=== PATIENT | male | born 1975 | race Caucasian/White ===

== ENCOUNTER 2020-06-05 17:27 | Inpatient (IN) | payer BC, SELFPAY ==
[2020-06-05] VITALS (12 sets, daily range): BP systolic 125–150; BP diastolic 77–95; PULSE 77–85; RESP 10–20; TEMP 36.9–37.6; O2SAT 92–98; BMI 33.9
--- NOTE | 2020-06-05 19:38 | P.HP_ITS ---
History of Present Illness History of Present Illness Date Patient Seen: 06/05/20 Time Patient Seen: 19:38 Chief complaint: ABD PAIN Narrative: 45M healthy healthy male transferred from an outside institution for acute appendicitis. He developed generalized abdominal pain yesterday today became focused in the right lower quadrant he was evaluated in the emergency room at [place] CT demonstrates acute appendicitis without abscess or for free air. White blood cell count 12. He has received ceftriaxone and Flagyl. He was transferred here he complains of abdominal pain no nausea vomiting or fever. Past medical history significant for a prior exploratory laparotomy for traumatic bowel perforation 20 years ago. He is a nonsmoker and not on anticoagulation. Patient History Medical History Traumatic perforation of large intestine (Acute) Surgical History H/O exploratory laparotomy (Acute) Review of Systems Review of Systems Narrative: A 10 point review of systems is negative except as noted in the HPI Exam Vital Signs (past 8 hours): - 06/05/20 19:20 Temperature 99.3 F Pulse Rate 83 Respiratory Rate 20 Blood Pressure 125/79 Pulse Oximetry 95 Oxygen Flow Rate 0 Narrative Exam Narrative: General-no acute distress, well nourished HEENT-moist mucous membranes, no scleral icterus Neck-supple, no lymphadenopathy Chest- non labored respirations, clear to auscultation bilaterally Cardiac-regular rate no peripheral edema Abdomen-midline laparotomy scar. Tender right lower quadrant no guarding Extremities-warm, well perfused Neurological-alert and oriented, no focal deficits Assessment & Plan Assessment and plan (1) Acute appendicitis: Status: Acute Assessment & Plan narrative: 45-year-old male with acute appendicitis transferred from an outside facility. I reviewed his CT which demonstrates acute appendicitis without abscess. He has had 2 days of symptoms, white blood cell count is 12, history of prior laparotomy. I recommended that we proceed to the operating room for laparoscopic appendectomy. We discussed the technical nature of the procedure and the operative risks including bleeding infection conversion open damage to surrounding structures. I told him he is at slightly higher risk for a difficult case given his prior laparotomy and potential intra-abdominal adhesions. His questions have been answered he is in agreement with this plan will proceed to the operating room. His COVID testing at the outside institution was negative. COVID-19 COVID-19 status: Negative
[2020-06-05] MEDS: LACTATED RINGERS 1,000 ML 42 ML IV ×2 (20:00→21:58)
--- NOTE | 2020-06-05 20:37 | SUR.OPER ---
Supine on padded OR bed, head on pillow, right arm secured on padded arm boards at <90 degrees abduction, left arm is tucked, legs uncrossed, safety belt at thigh, tape over blanket over lower legs.
[2020-06-05] MEDS: BUPIVACAINE 0.25% (PF) VIAL 30 ML INJ (20:43)
[2020-06-05] MEDS: PIPERACILLIN-TAZO 3.375 GM/50 ML FROZ.PIGGY IV (21:58)
--- NOTE | 2020-06-05 22:15 | PC.NURSE ---
Admit/Evening Shift Note- Patient arrived via helicopter from wed[facility] at 191. Patient alert and oriented and able to make needs known to staff. Patient pleasent, clam, and cooperative with care. Admit questions done, no medicaitons to review, physical assessment and skin check completed. Oriented patient to bed and bed controls, room, bathroom, lights, phone, menu, and call bhatia/tv remote. Patient left via bed to surgery 1944. Called patients Maricruz per patient request to update on what was happening.
[2020-06-05] MEDS: fentaNYL 100 MCG/2 ML INJ IV ×2 (22:49→23:13)
[2020-06-05] MEDS: ONDANSETRON 4 MG/2 ML INJ IV (22:51)
[2020-06-05] MEDS: HYDROMORPHONE 2 MG INJ IV ×3 (22:55→23:18)
--- NOTE | 2020-06-05 22:55 | P.OP_ITS ---
Operative Date/Time/Diagnoses Date of procedure: 06/05/20 Time of procedure: 22:55 Pre-op diagnosis: Acute appendicitis Post-op diagnosis: same Procedure & Clinicians Procedure: Laparoscopy Extensive lysis of adhesions Exploratory laparotomy Open appendectomy Same procedure as scheduled: No Indications: This is a 45-year-old man who had a previous exploratory laparotomy for a traumatic colonic perforation who presented with acute appendicitis. Surgeon: Tavon Armstrong Maintenance Supervisor Mechanical: Romeo Perkins Anesthesia Type: General Operative Notes Findings: Acute non perforated appendicitis. Extensive intra abdominal adhesions Specimen(s): other (Appendix) Estimated Blood Loss (mL): 100 Procedure in detail: Patient was brought to the operating room and placed supine on the table. Bilateral lower extremity compression devices were applied. General anesthesia was induced he was intubated with an endotracheal tube. Time-out was performed. He received 3.375 g of Zosyn prior to skin incision. He had a previous midline laparotomy so I made a cutdown incision on the left lower quadran. The subcutaneous tissues were divided the fascia elevated incised and then the 12 mm balloon trocar was then placed into the abdomen. Pneumoperitoneum was established. There was no evidence of injury upon entry. There were extensive dense adhesions throughout the abdomen especially to the midline and over the right lower quadrant. I placed additional 5 mm working ports in the left upper quadrant and high in the epigastrium. An extensive lysis of adhesions was performed using sharp dissection. The adhesions to the midline and overlying the right lower quadrant and these were taken down meticulously under direct visualization. Despite this I was still unable to identify the appendix. I then mobilized the right colon medially by taking it down from its attachments along the lateral wall following the white line of Toldt. There was a mass at the base of the cecum that I suspect was the appendix however it was signficantly adherent to thececum and the terminal ileum I was unable to clearly and safely deliniate the structures laparoscopically. Converted to an exploratory laparotomy and had my partner come and assist. I reopened his midline incision through the scar tissue. The subcutaneous tissues were divided the fascia was then elevated and sharply incised the abdomen was entered. The Bookwalter was placed. Further lysis of adhesions was performed in order to completely mobilize the cecum. Following the tenia down the right colon the appendix was ultimately identified. It was folded on itself and adhesed to the terminal ileum. The appendix was carefully dissected off of the terminal ileum the mesoappendix was divided between silk suture. Ultimately the base of the appendix was indeed visualized and it was healthy appearing the appendix was acutely inflamed but it was not perforated. The appendix was amputated at its base flush with the cecum the base was suture ligated with both PDS and Vicryl suture. I inspected the cecum carefully, there was no evidence of leak. The abdomen was copiously lavaged with sterile saline hemostasis was observed. The midline incision with a running #1 PDS from above and below. The subcutaneous tissues were then reapproximated using 3 0 Vicryl the skin was closed with nidhi as well as the laparoscopic port incisions. He emergerd from general anesthesia and was transfered to recovery in stable condition. Complications: none Post-operative Condition: stable Disposition: Acute Care
[2020-06-05] MEDS: METOCLOPRAMIDE 10 MG/2 ML INJ IV (23:27)
[2020-06-05] MEDS: OXYCODONE IR 5 MG TABLET PO (23:27)
[2020-06-05] MEDS: KETOROLAC 30 MG/ML VIAL IV (23:35)
[2020-06-06] VITALS (17 sets, daily range): BP systolic 111–139; BP diastolic 63–91; PULSE 61–80; RESP 16–20; TEMP 36.3–37; O2SAT 92–99
[2020-06-06] MEDS: ACETAMINOPHEN 325 MG TABLET 650 MG PO ×4 (00:19→16:39)
[2020-06-06] MEDS: SODIUM CHLORIDE 0.9% 1,000 ML 125 ML IV (00:22)
--- NOTE | 2020-06-06 01:20 | PC.NURSE ---
Pt arrived from surgery at 0000. Reports pain at 5/10 in ab, and reports tolerating pain at this time. Tylenol given as ordered. Midline and lap dressing sites CDI. Pt alert and oriented and holding a conversation. CMS intact. O2 sats at 98% on 4L o2. O2 sats decreased to 88% without O2. Pt has no complaints at this time. 0100 - Pt now resting in bed with eyes closed. [facility]
[2020-06-06] MEDS: OXYCODONE IR 5 MG TABLET 10 MG PO ×5 (03:11→22:20)
[2020-06-06] MEDS: PIPERACILLIN-TAZO 3.375 GM/50 ML FROZ.PIGGY IV ×3 (03:12→21:09)
[2020-06-06] MEDS: HYDROMORPHONE 2 MG INJ 1 MG IV (04:02)
[2020-06-06 05:06] LABS: Add Manual Diff / Slide Review NO; Basophils Absolute Auto 0 /uL (0-100); Basophils Percent Auto 0.2 % (0-2); Eosinophils Absolute Auto 0 /uL (0-450); Hemoglobin 14.9 g/dL (13.5-17.5); Lymphocytes Absolute Auto 500 /uL (1100-4500); Lymphocytes Percent Auto 3.8 % (25-40); Mean Corpuscular HGB Conc 34.5 % (30-36); Mean Corpuscular Hemoglobin 30.8 PG (26-34); Mean Corpuscular Volume 89.2 fL (80-100); Monocytes Absolute Auto 1000 /uL (0-900); Monocytes Percent Auto 7.2 % (3-14); Neutrophils Absolute Auto 12400 /uL (1500-7000); Neutrophils Percent Auto 88.8 % (50-75); Platelet Count 161 X10^3/uL (150-400); Red Blood Cell Count 4.82 X10^6/uL (4.5-5.9); Red Cell Distribution Width 12.8 % (11.6-14.8); White Blood Cell Count 13.9 X10^3/uL (4.5-11.0)
[2020-06-06 05:32] LABS: BUN Creatinine Ratio 18.9 (6-22); Blood Urea Nitrogen 18 mg/dL (9-20); Calcium 8.7 mg/dL (8.4-10.2); Carbon Dioxide 29 mmol/L (22-32); Chloride 103 mmol/L (98-107); Estimated Glomerular Filt Rate > 60.0 mL/min (>60); Glucose 155 mg/dL (70-100); HEMOLYSIS < 15 (0-50); Phosphorous 4.9 mg/dL (2.5-4.5); Potassium 4.4 mmol/L (3.4-5.1); Sodium 138 mmol/L (137-145)
--- NOTE | 2020-06-06 09:35 | P.PN_ITS ---
Subjective Subjective Date Patient Seen: 06/06/20 Time Patient Seen: 09:35 Interval history: No acute overnight events. He has tolerated clear liquid diet his passing flatus his pain is well controlled on oral medications. Urinating without issue. Exam Vital Signs (past 8 hours): - 06/06/20 02:04 06/06/20 03:10 06/06/20 04:00 Temperature Pulse Rate 66 65 Respiratory Rate 20 20 Blood Pressure 129/71 137/79 Pulse Oximetry 97 99 98 06/06/20 06:36 06/06/20 07:26 06/06/20 08:00 Temperature 97.4 F L Pulse Rate Respiratory Rate 18 Blood Pressure 139/80 Pulse Oximetry 96 94 94 Oxygen Delivery Method Room Air Oxygen Flow Rate 0 Narrative Exam Narrative: General adult male alert oriented no acute distress Abdomen appropriately tender to palpation midline incision clean dry intact with nidhi. Objective Labs Result Diagrams: 06/06/20 04:52 06/06/20 04:52 Labs: Laboratory Results - last 24 hr 06/06/20 06/06/20 04:52 04:52 WBC 13.9 H RBC 4.82 Hgb 14.9 Hct 43.0 MCV 89.2 MCH 30.8 MCHC 34.5 RDW 12.8 Plt Count 161 Neut % (Auto) 88.8 H Lymph % (Auto) 3.8 L [place] % (Auto) 7.2 Eos % (Auto) 0.0 L Baso % (Auto) 0.2 Neut # (Auto) 01769 H Lymph # (Auto) 500 L [place] # (Auto) 1000 H Eos # (Auto) 0 Baso # (Auto) 0 Sodium 138 Potassium 4.4 Chloride 103 Carbon Dioxide 29 BUN 18 Creatinine 0.95 Estimated GFR > 60.0 BUN/Creatinine Ratio 18.9 Glucose 155 H Calcium 8.7 Phosphorus 4.9 H Magnesium 2.0 Assessment & Plan Post-op Postoperative Procedures: Procedures Operation Date: 06/05/20 19:30 Actual Procedures Side Surgeon p Laparoscopic Appendectomy converted to open. Lysis of adhesions. Tavon Armstrong MD Postoperative status narrative: 45-year-old male postoperative day 1 after a laparoscopic converted to open appendectomy and lysis of adhesions for acute non perforated appendicitis. And had a prior laparotomy for a traumatic bowel perforation and had significant intra-abdominal adhesions which was the operation could not be completed laparoscopically. He is overall doing very well this morning. -regular diet -DC IV fluids -out of bed ambulate -SCDs for VT prophylaxis. -will re-evaluate later this afternoon for possible discharge home today versus tomorrow Time Spent With Patient Time with patient: 25 - 35 minutes Quality VTE Deep Vein Thrombosis/Pulmonary Embolism Present on Admission: No
--- NOTE | 2020-06-06 10:12 | PC.NURSE ---
Pt up and walking in [place]. Denies dizziness or nausea. States he is not really having pain but that everything feels tight. Pt denies needs at this time. Dsg to abdomen changed per Dr. Armstrong instructions-Coversite placed over nidhi.
[2020-06-06] MEDS: KETOROLAC 30 MG/ML VIAL IV ×2 (13:00→22:20)
--- NOTE | 2020-06-06 13:42 | CM.DANOTE ---
Discharge Planning/Care Management DCP: assessment: case received, EMR reviewed. Pt is a 45 year old male who admitted to care of [facility]: Dr. Armstrong. Payer: [facility] out of [facility] Pt was taken to surgery last evening with dx of acute appendicitis and in setting of a prior abdominal surgery many years ago. Surgery: exploratory Laparotomy: open appendectomy: [place] Pt has been up mobilizing in the halls and is tolerating diet but his pain in not yet well controlled. Dr. Armstrong checked in on him this afternoon and plan is now to keep him overnight with a d/c home tomorrow. Will follow prn. CM Discharge Assessment Start: 06/06/20 13:40 Freq: Status: Active Protocol: Document 06/06/20 13:41 ITV (Rec: 06/06/20 13:42 ITV [id number]) Discharge Planning Assessment Advance Directives? No Advance Directives on File No History Provided By Patient,Medical Record Prior Living Arrangements House Household Members spouse Independent with ADL's Yes Is patient alert and oriented? Yes Review Status In Process
[2020-06-07] VITALS (10 sets, daily range): BP systolic 112–140; BP diastolic 67–82; PULSE 65–70; RESP 16–20; TEMP 36.7–37; O2SAT 94–97
[2020-06-07] MEDS: ACETAMINOPHEN 325 MG TABLET 650 MG PO ×4 (00:02→17:58)
[2020-06-07] MEDS: OXYCODONE IR 5 MG TABLET 10 MG PO ×5 (02:41→20:44)
[2020-06-07] MEDS: PIPERACILLIN-TAZO 3.375 GM/50 ML FROZ.PIGGY IV ×3 (04:03→19:59)
[2020-06-07 05:13] LABS: Add Manual Diff / Slide Review NO; Basophils Absolute Auto 0 /uL (0-100); Basophils Percent Auto 0.5 % (0-2); Eosinophils Absolute Auto 100 /uL (0-450); Eosinophils Percent Auto 0.9 % (2-4); Hematocrit 38.4 % (41-53); Hemoglobin 13.4 g/dL (13.5-17.5); Lymphocytes Absolute Auto 1400 /uL (1100-4500); Lymphocytes Percent Auto 14.4 % (25-40); Mean Corpuscular HGB Conc 34.8 % (30-36); Mean Corpuscular Hemoglobin 30.9 PG (26-34); Mean Corpuscular Volume 88.8 fL (80-100); Monocytes Absolute Auto 800 /uL (0-900); Monocytes Percent Auto 8.1 % (3-14); Neutrophils Absolute Auto 7600 /uL (1500-7000); Neutrophils Percent Auto 76.1 % (50-75); Platelet Count 151 X10^3/uL (150-400); Red Blood Cell Count 4.33 X10^6/uL (4.5-5.9); Red Cell Distribution Width 12.9 % (11.6-14.8)
[2020-06-07 05:20] LABS: BUN Creatinine Ratio 19.2 (6-22); Blood Urea Nitrogen 19 mg/dL (9-20); Calcium 8.3 mg/dL (8.4-10.2); Carbon Dioxide 32 mmol/L (22-32); Chloride 98 mmol/L (98-107); Estimated Glomerular Filt Rate > 60.0 mL/min (>60); Glucose 105 mg/dL (70-100); HEMOLYSIS < 15 (0-50); Magnesium 2.2 mg/dL (1.6-2.3); Potassium 3.8 mmol/L (3.4-5.1); Sodium 133 mmol/L (137-145)
[2020-06-07] MEDS: KETOROLAC 30 MG/ML VIAL IV ×3 (06:18→21:28)
--- NOTE | 2020-06-07 07:02 | PM.PNPO.1 ---
Subjective Subjective Date Patient Seen: 06/07/20 Time Patient Seen: 07:03 Interval history: No acute overnight events. As tolerated a regular diet is ambulating well mostly controlled with oral pain medication. Exam Vital Signs (past 8 hours): - 06/06/20 23:35 06/07/20 00:00 06/07/20 03:55 Temperature 97.6 F 98.3 F Pulse Rate 70 70 Respiratory Rate 16 16 Blood Pressure 111/63 112/67 Pulse Oximetry 94 94 96 06/07/20 04:00 Temperature Pulse Rate Respiratory Rate Blood Pressure Pulse Oximetry 96 Oxygen Delivery Method Room Air Oxygen Flow Rate 0 Narrative Exam Narrative: General adult male alert oriented no acute distress Chest nonlabored respiration Abdomen soft mildly distended appropriately tender to palpation dressing clean dry intact Objective Labs Result Diagrams: 06/07/20 04:51 06/07/20 04:51 Labs: Laboratory Results - last 24 hr 06/07/20 06/07/20 04:51 04:51 WBC 10.0 RBC 4.33 L Hgb 13.4 L Hct 38.4 L MCV 88.8 MCH 30.9 MCHC 34.8 RDW 12.9 Plt Count 151 Neut % (Auto) 76.1 H Lymph % (Auto) 14.4 L [place] % (Auto) 8.1 Eos % (Auto) 0.9 L Baso % (Auto) 0.5 Neut # (Auto) 7600 H Lymph # (Auto) 1400 [place] # (Auto) 800 Eos # (Auto) 100 Baso # (Auto) 0 Sodium 133 L Potassium 3.8 Chloride 98 Carbon Dioxide 32 BUN 19 Creatinine 0.99 Estimated GFR > 60.0 BUN/Creatinine Ratio 19.2 Glucose 105 H Calcium 8.3 L Phosphorus 3.0 D Magnesium 2.2 Assessment & Plan Post-op Postoperative Procedures: Procedures Operation Date: 06/05/20 19:30 Actual Procedures Side Surgeon p Laparoscopic Appendectomy converted to open. Lysis of adhesions. Tavon Armstrong MD Postoperative plan narrative: 45-year-old male postoperative day 2 after a laparoscopic converted to open appendectomy for acute non perforated appendicitis. In his overall progressing. Yesterday he was fairly insistent that he wanted to go home today however he still in a moderate amount of pain as to be expected following an exploratory laparotomy and I told him I do not think that he is ready to go today especially in light of the fact that he lives is in a remote location and if he has uncontrolled pain or of further issue return to the hospital could potentially be complicated. -regular diet -out of bed ambulating -continue Zosyn -SCDs and Lovenox -MiraLax Quality VTE Deep Vein Thrombosis/Pulmonary Embolism Present on Admission: No
[2020-06-07] MEDS: polyethylene glycoL 3350 17 GM POWD.PACK PO (08:01)
[2020-06-07] MEDS: ENOXAPARIN 40 MG/0.4 ML SYRINGE SUBCUT (08:01)
--- NOTE | 2020-06-07 09:18 | CM.DPC ---
DCP: continued: EMR reviewed and Dr. Armstrong's orders for tomorrow are noted. Conferred with nursing staff and then met with pt and his Maricruz/bedside. Introduced self and role. Pt confirms that Dr. Armstrong was in early this morning, noted that pt's GI function was just newly in process of returning and stated he would continue to treat him in the hospital with a d/c probable but not certain tomorrow/06/08. Pt and Maricruz state they very much agree with same. They live on [address] (moved there from [place] a year ago) which is accessible only by boat. A friend on the [place] is planning to pick them up in his boat as it is more comfortable and will be here in the morning of whichever day the d/c is to be. Confirmed [place] is their mailing address. DCP team will be following. Anticipate d/c as per above in next couple of days.
[2020-06-07] MEDS: SODIUM CHLORIDE 0.9% FLUSH 10 ML IV ×3 (12:23→19:59)
--- NOTE | 2020-06-07 14:22 | PC.NURSE ---
PATIENT AMBULATES INDEP IN HALLS W/ SPOUSE SBA. TOLERATING PAIN W/ OXYCODONE, TORADOL AND ICE PACKS PRN. DRSGS X3 TO ABD CDI. PATIENT PASSING FLATUS, HAD SM BM THIS AFTERNOON. TOLERATES FOOD AND PO FLUIDS.
--- NOTE | 2020-06-07 17:01 | PC.NURSE ---
Addendum entered by Florence Ríos R.N. 06/07/20 21:57: Since securing iv site right hand with netting, pt has denied any tenderness or discomfort with iv flush or meds. Ice to abdomen prn. Voiding in bathroom without difficulty. S.O. remains present, attentive and involved in pt's care. Pt rates pain consistently to abdomen 4-5/10. Able to move self in and out of bed for toileting and ambulation. Addendum entered by Florence Ríos R.N. 06/07/20 18:11: Pt reports large loose stool following consuming 100% evening meal. States distention improving and able to now see my bandages. Reports breathing easier with less dyspnea. Original Note: Pt ambulatory with spouse around [facility] [employer] station. To bathroom and states passing flatus and voiding without difficulty. Independent with ADL's. Rates incisional pain 4/10. Oxycodone as per emar. Pt denies nausea. Admits to some shortness of breath with activity; denies chest pain. Pt admits to abdominal distention and abdomen is large in size. States abdomen, feels full. Two large bandaids to abdomen with coversite midline. Scant old drainage to distal aspect. BL calf scd's replaced after ambulation. Spouse present and rooming in. Both parties state anticipate discharge to home 06/08. When asked, pt reports iv to right hand is tender. Site is without erythema or edema. Offered to restart pt's iv in a new location and pt declines. Will monitor with 2000 antibiotic infusion. Pt states when flushed slowly site is less tender. Ice provided to abdomen per pt request. Encouraged to call for needs.
[2020-06-07] MEDS: SODIUM CHLORIDE 0.9% 250 ML 21 ML IV (20:00)
[2020-06-08] VITALS (7 sets, daily range): BP systolic 127–143; BP diastolic 74–86; PULSE 59–68; RESP 15–16; TEMP 36.8–37.3; O2SAT 95–99
[2020-06-08] MEDS: ACETAMINOPHEN 325 MG TABLET 650 MG PO ×3 (00:29→12:12)
[2020-06-08] MEDS: OXYCODONE IR 5 MG TABLET 10 MG PO ×4 (00:34→12:12)
[2020-06-08] MEDS: PIPERACILLIN-TAZO 3.375 GM/50 ML FROZ.PIGGY IV ×2 (04:06→12:16)
[2020-06-08] MEDS: SODIUM CHLORIDE 0.9% FLUSH 10 ML IV ×2 (04:07→12:12)
[2020-06-08 05:38] LABS: Add Manual Diff / Slide Review NO; Basophils Absolute Auto 0 /uL (0-100); Basophils Percent Auto 0.5 % (0-2); Eosinophils Absolute Auto 200 /uL (0-450); Eosinophils Percent Auto 2.7 % (2-4); Hematocrit 37.7 % (41-53); Hemoglobin 13.2 g/dL (13.5-17.5); Lymphocytes Absolute Auto 1200 /uL (1100-4500); Lymphocytes Percent Auto 16.2 % (25-40); Mean Corpuscular Hemoglobin 31.1 PG (26-34); Mean Corpuscular Volume 88.9 fL (80-100); Monocytes Absolute Auto 800 /uL (0-900); Neutrophils Absolute Auto 5300 /uL (1500-7000); Neutrophils Percent Auto 70.6 % (50-75); Platelet Count 166 X10^3/uL (150-400); Red Blood Cell Count 4.24 X10^6/uL (4.5-5.9); Red Cell Distribution Width 12.7 % (11.6-14.8); White Blood Cell Count 7.6 X10^3/uL (4.5-11.0)
[2020-06-08] MEDS: KETOROLAC 30 MG/ML VIAL IV (05:43)
[2020-06-08 05:51] LABS: BUN Creatinine Ratio 15.9 (6-22); Blood Urea Nitrogen 17 mg/dL (9-20); Calcium 8.5 mg/dL (8.4-10.2); Carbon Dioxide 33 mmol/L (22-32); Chloride 102 mmol/L (98-107); Estimated Glomerular Filt Rate > 60.0 mL/min (>60); Glucose 103 mg/dL (70-100); HEMOLYSIS < 15 (0-50); Magnesium 2.4 mg/dL (1.6-2.3); Potassium 4.1 mmol/L (3.4-5.1); Sodium 138 mmol/L (137-145)
[2020-06-08] MEDS: ENOXAPARIN 40 MG/0.4 ML SYRINGE SUBCUT (08:04)
--- NOTE | 2020-06-08 11:15 | P.DS_ITS ---
History of Present Illness History of Present Illness Chief complaint: ABD PAIN Narrative: 45M healthy healthy male transferred from an outside institution for acute appendicitis. He developed generalized abdominal pain yesterday today became focused in the right lower quadrant he was evaluated in the emergency room at [place] CT demonstrates acute appendicitis without abscess or for free air. White blood cell count 12. He has received ceftriaxone and Flagyl. He was transferred here he complains of abdominal pain no nausea vomiting or fever. Past medical history significant for a prior exploratory laparotomy for traumatic bowel perforation 20 years ago. He is a nonsmoker and not on anticoagulation. Discharge Providers Provider Date of admission: 06/05/20 17:27 Discharge Date: 06/08/20 Discharge provider: Tavon Armstrong MD Summary Hospital Course Discharge Diagnosis: Acute appendicitis Hospital Course: Underwent a laparoscopic converted to open appendectomy for acute non perforated appendicitis. He had a prior laparotomy for a traumatically perforated bowel which resulted in extremely dense intra-abdominal adhesions prohibitive to a laparoscopic appendectomy. He had a appropriate recovery. At discharge he is feeling well white blood cell count 7 afebrile ruy erating regular diet having bowel movements pain is controlled with oral medications. Status at Discharge Cognitive/behavioral status at discharge: oriented Functional status at discharge: independent ambulation Time Spent with Patient Time spent: Greater than 30 minutes Exam Vital Signs (past 8 hours): - 06/08/20 04:00 06/08/20 04:10 06/08/20 08:00 Temperature 99.0 F 98.2 F Pulse Rate 59 L 64 Respiratory Rate 16 15 Blood Pressure 127/75 129/74 Pulse Oximetry 99 99 95 Oxygen Delivery Method Room Air Oxygen Flow Rate 0 Narrative Exam Narrative: General adult male alert oriented no acute distress Abdomen soft appropriately tender to palpation midline incision clean dry intact nidhi as well as the laparoscopic incisions. Objective Labs Result Diagrams: 06/08/20 05:05 06/08/20 05:05 Labs: Laboratory Results - last 24 hr 06/08/20 06/08/20 05:05 05:05 WBC 7.6 RBC 4.24 L Hgb 13.2 L Hct 37.7 L MCV 88.9 MCH 31.1 MCHC 35.0 RDW 12.7 Plt Count 166 Neut % (Auto) 70.6 Lymph % (Auto) 16.2 L [place] % (Auto) 10.0 Eos % (Auto) 2.7 Baso % (Auto) 0.5 Neut # (Auto) 5300 Lymph # (Auto) 1200 [place] # (Auto) 800 Eos # (Auto) 200 Baso # (Auto) 0 Sodium 138 Potassium 4.1 Chloride 102 Carbon Dioxide 33 H BUN 17 Creatinine 1.07 Estimated GFR > 60.0 BUN/Creatinine Ratio 15.9 Glucose 103 H Calcium 8.5 Phosphorus 3.0 Magnesium 2.4 H Discharge Plan Discharge Plan Patient Disposition: Home Discharge orders & Medications Prescriptions: New docusate sodium [Colace] 100 mg capsule 100 mg PO BID Qty: 40 RF: 0 acetaminophen [Tylenol] 325 mg capsule 650 mg PO QID PRN (Reason: pain) Qty: 60 RF: 0 levofloxacin [Levaquin] 750 mg tablet 750 mg PO Q24H Qty: 7 RF: 0 metronidazole [Flagyl] 500 mg tablet 500 mg PO TID Qty: 21 RF: 0 oxycodone 5 mg tablet 10 mg PO Q6H PRN (Reason: pain) Qty: 80 RF: 0 Follow up/Referrals: Tavon Armstrong MD [Physician] - 2 Weeks (This follow up with the the surgical clinic for staple removal in 2 weeks time or your primary care physician ) Diet/Activity/Treatments Diet: Regular Activity: No lifting >20 lbs x 6 weeks. Walking only for exercise for 6 weeks[address] while taking narcotics. Skin/Wound/Dressing Care Report to your healthcare provider any signs of infection, such as:: chills, fever, increased pain and unusual drainage Dressing: May leave incision open to air and may shower please do not submerge the incision in water for at least 1 week Visit Report/Discharge Packet Instructions: DI for an Appendectomy, DI for Prescription Opioid Use, Oxycodone, Metronidazole, Levofloxacin, [facility]: Wound Care Visit Report Forms: Patient Portal/API, Stroke Signs & Symptoms Quality VTE Deep Vein Thrombosis/Pulmonary Embolism Present on Admission: No
--- NOTE | 2020-06-08 13:38 | PC.NURSE ---
Patient discharge teaching done regarding new medications, s/s of infection, activity, diet and the use of narcotics. Patient had prescriptions in hand for discharge, took prescriptions to pharmacy prior to discharge. Patient educated about incision and shower, not to submerge incision. Patient notified of follow up apt's w/ Dr. Armstrong in 2 weeks. Patient left via wheelchair and private vehicle ([employer] to boat). Patient and verbalized understanding of all discharge teaching instructions.
--- NOTE | 2020-09-11 00:52 | ED_ITS ---
HPI - General Adult Related Data Previous Rx's Medication Instructions Recorded acetaminophen [Tylenol] 650 mg PO QID PRN #60 cap 06/06/20 docusate sodium [Colace] 100 mg PO BID #40 cap 06/06/20 levofloxacin [Levaquin] 750 mg PO Q24H #7 tab 06/07/20 metronidazole [Flagyl] 500 mg PO TID #21 tab 06/07/20 oxycodone 10 mg PO Q6H PRN #80 tab 06/08/20 Allergies Allergy/AdvReac Type Severity Reaction Status Date / Time No Known Drug Allergies Allergy Verified 06/05/20 20:05 Patient History Medical History (Updated 06/05/20 @ 19:41 by Tavon Armstrong MD) Traumatic perforation of large intestine Surgical History H/O exploratory laparotomy Social History household members: spouse Smoking Status: Never smoker alcohol intake: current Smoking Status: Never smoker alcohol intake frequency: 0-2 drinks per day Substance Use Type: does not use Exam Initial Vital Signs Initial Vital Signs: Vital Signs Temperature 99.3 F 06/05/20 19:20 Pulse Rate 83 06/05/20 19:20 Respiratory Rate 20 06/05/20 19:20 Blood Pressure 125/79 06/05/20 19:20 Pulse Oximetry 95 06/05/20 19:20 Course Orders Ordered: Discontinued Medications Acetaminophen (Acetaminophen 325 Mg Tablet) 650 mg PO Q6HR ALEA Last Admin: 06/08/20 12:12 Dose: 650 mg Documented by: Admin: 06/08/20 05:42 Dose: 650 mg Documented by: Admin: 06/08/20 00:29 Dose: 650 mg Documented by: Admin: 06/07/20 17:58 Dose: 650 mg Documented by: Admin: 06/07/20 12:23 Dose: 650 mg Documented by: Admin: 06/07/20 06:18 Dose: 650 mg Documented by: Admin: 06/07/20 00:02 Dose: 650 mg Documented by: Admin: 06/06/20 16:39 Dose: 650 mg Documented by: Admin: 06/06/20 11:59 Dose: 650 mg Documented by: Admin: 06/06/20 06:15 Dose: 650 mg Documented by: Admin: 06/06/20 00:19 Dose: 650 mg Documented by: YANNICK Bupivacaine HCl (Bupivacaine 0.25% (Pf) Vial) 30 ml INJ NOW ONE Stop: 06/05/20 20:44 Last Admin: 06/05/20 20:43 Dose: 2 ml Documented by: SHABNAM Enoxaparin Sodium (Enoxaparin 40 Mg/0.4 Ml Syringe) 40 mg SUBCUT DAILY [facility] Last Admin: 06/08/20 08:04 Dose: 40 mg Documented by: Admin: 06/07/20 08:01 Dose: 40 mg Documented by: PAULY Fentanyl (Fentanyl 100 Mcg/2 Ml Inj) 0 mcg IV Q5M PRN PRN Reason: Pain, Moderate (4-6) Last Admin: 06/05/20 23:13 Dose: 50 mcg Documented by: Admin: 06/05/20 22:49 Dose: 50 mcg Documented by: GEORGE Hydromorphone HCl (Hydromorphone 2 Mg Inj) 0 mg IV Q5MIN PRN PRN Reason: Pain, Mild (1-3) Last Admin: 06/05/20 23:18 Dose: 1 mg Documented by: Admin: 06/05/20 23:05 Dose: 1 mg Documented by: Admin: 06/05/20 22:55 Dose: 1 mg Documented by: GEORGE Hydromorphone HCl (Hydromorphone 2 Mg Inj) 1 mg IV Q2HR PRN PRN Reason: Pain, Severe (7-10) Last Admin: 06/06/20 04:02 Dose: 1 mg Documented by: YANNICK Hydromorphone HCl (Hydromorphone 1 Mg Inj) 1 mg IV Q2HR PRN PRN Reason: Pain, Severe (7-10) Dextrose/Sodium Chloride (Dextrose 5%-0.9% Ns) 1,000 mls @ 100 mls/hr IV CONT ALEA Last Admin: 06/06/20 00:00 Dose: Not Given Documented by: YANNICK Piperacillin/Tazobactam/Dextrose (Zosyn) 3.375 gm in 50 mls @ 100 mls/hr IV NOW ONE Stop: 06/05/20 20:14 Last Infusion: 06/05/20 20:30 Dose: 0 mls/hr Documented by: Admin: 06/05/20 20:20 Dose: 100 mls/hr Documented by: MARY Sodium Chloride (Normal Saline 0.9%) 1,000 mls @ 125 mls/hr IV CONT ALEA Last Admin: 06/06/20 00:22 Dose: 125 mls/hr Documented by: YANNICK Lactated Ringer's (Lactated Ringers) 1,000 mls @ 42 mls/hr IV NOW ONE Stop: 06/06/20 21:41 Last Infusion: 06/05/20 23:22 Dose: 0 mls/hr Documented by: Admin: 06/05/20 21:58 Dose: 42 mls/hr Documented by: Infusion: 06/05/20 21:58 Dose: 42 mls/hr Documented by: Admin: 06/05/20 20:00 Dose: 42 mls/hr Documented by: MARY Piperacillin/Tazobactam/Dextrose (Zosyn) 3.375 gm in 50 mls @ 100 mls/hr IV Q8H [facility] Last Admin: 06/06/20 00:36 Dose: Not Given Documented by: YANNICK Piperacillin/Tazobactam/Dextrose (Zosyn) 3.375 gm in 50 mls @ 100 mls/hr IV Q8H [facility] Last Infusion: 06/08/20 12:46 Dose: 100 mls/hr Documented by: Admin: 06/08/20 12:16 Dose: 100 mls/hr Documented by: Infusion: 06/08/20 04:40 Dose: 0 mls/hr Documented by: Admin: 06/08/20 04:06 Dose: 100 mls/hr Documented by: Infusion: 06/07/20 20:55 Dose: 100 mls/hr Documented by: Admin: 06/07/20 19:59 Dose: 100 mls/hr Documented by: Infusion: 06/07/20 13:57 Dose: 100 mls/hr Documented by: Admin: 06/07/20 12:20 Dose: 100 mls/hr Documented by: Infusion: 06/07/20 04:45 Dose: 0 mls/hr Documented by: Admin: 06/07/20 04:03 Dose: 100 mls/hr Documented by: Infusion: 06/06/20 21:39 Dose: 100 mls/hr Documented by: Admin: 06/06/20 21:09 Dose: 100 mls/hr Documented by: Infusion: 06/06/20 13:06 Dose: 0 mls/hr Documented by: Admin: 06/06/20 11:58 Dose: 100 mls/hr Documented by: Infusion: 06/06/20 03:57 Dose: 0 mls/hr Documented by: Admin: 06/06/20 03:12 Dose: 100 mls/hr Documented by: YANNICK Sodium Chloride (Normal Saline 0.9%) 250 mls @ 21 mls/hr IV Q24H PRN PRN Reason: Flush Last Infusion: 06/07/20 20:53 Dose: 0 mls/hr Documented by: Admin: 06/07/20 20:00 Dose: 21 mls/hr Documented by: MARGA Ibuprofen (Ibuprofen 600 Mg Tablet) 600 mg PO Q6HR ALEA Ketorolac Tromethamine (Ketorolac 30 Mg/Ml Vial) 30 mg IV Q8HR ALEA Stop: 06/10/20 23:31 Last Admin: 06/08/20 05:43 Dose: 30 mg Documented by: Admin: 06/07/20 21:28 Dose: 30 mg Documented by: Admin: 06/07/20 13:56 Dose: 30 mg Documented by: Admin: 06/07/20 06:18 Dose: 30 mg Documented by: Admin: 06/06/20 22:20 Dose: 30 mg Documented by: Admin: 06/06/20 13:00 Dose: 30 mg Documented by: Admin: 06/05/20 23:35 Dose: 30 mg Documented by: GEORGE Metoclopramide HCl (Metoclopramide 10 Mg/2 Ml Inj) 10 mg IV NOW PRN PRN Reason: Nausea And Vomiting Last Admin: 06/05/20 23:27 Dose: 10 mg Documented by: GEORGE Naloxone HCl (Naloxone 0.4 Mg/Ml Vial) 0.2 mg IV Q2MIN PRN PRN Reason: Opiate Reversal Ondansetron HCl (Ondansetron 4 Mg/2 Ml Inj) 4 mg IV Q8HR PRN PRN Reason: Nausea And Vomiting Ondansetron HCl (Ondansetron 4 Mg/2 Ml Inj) 4 mg IV NOW PRN PRN Reason: Nausea And Vomiting Last Admin: 06/05/20 22:51 Dose: 4 mg Documented by: GEORGE Oxycodone HCl (Oxycodone Ir 5 Mg Tablet) 5 mg PO Q6HR PRN PRN Reason: Pain, Moderate (4-6) Oxycodone HCl (Oxycodone Ir 5 Mg Tablet) 5 mg PO Q4HR PRN PRN Reason: Pain, Moderate (4-6) Last Admin: 06/05/20 23:27 Dose: 5 mg Documented by: GEORGE Oxycodone HCl (Oxycodone Ir 5 Mg Tablet) 10 mg PO Q4HR PRN PRN Reason: Pain, Moderate (4-6) Last Admin: 06/08/20 12:12 Dose: 10 mg Documented by: Admin: 06/08/20 08:04 Dose: 10 mg Documented by: Admin: 06/08/20 04:06 Dose: 10 mg Documented by: Admin: 06/08/20 00:34 Dose: 10 mg Documented by: Admin: 06/07/20 20:44 Dose: 10 mg Documented by: Admin: 06/07/20 16:41 Dose: 10 mg Documented by: Admin: 06/07/20 12:39 Dose: 10 mg Documented by: Admin: 06/07/20 08:00 Dose: 10 mg Documented by: Admin: 06/07/20 02:41 Dose: 10 mg Documented by: Admin: 06/06/20 22:20 Dose: 10 mg Documented by: Admin: 06/06/20 16:38 Dose: 10 mg Documented by: Admin: 06/06/20 11:59 Dose: 10 mg Documented by: Admin: 06/06/20 08:01 Dose: 10 mg Documented by: Admin: 06/06/20 03:11 Dose: 10 mg Documented by: YANNICK Polyethylene Glycol (Polyethylene Glycol 3350 17 Gm Powd.Pack) 17 gm PO NOW ONE Stop: 06/07/20 07:03 Last Admin: 06/07/20 08:01 Dose: 17 gm Documented by: PAULY Sodium Chloride (Sodium Chloride 0.9% Flush) 10 ml IV PRN PRN PRN Reason: Flush Last Admin: 06/08/20 04:07 Dose: 10 ml Documented by: Admin: 06/07/20 12:23 Dose: 10 ml Documented by: PAULY Sodium Chloride (Sodium Chloride 0.9% Flush) 10 ml IV BID ALEA Last Admin: 06/08/20 12:12 Dose: 10 ml Documented by: Admin: 06/07/20 19:59 Dose: 10 ml Documented by: Admin: 06/07/20 12:23 Dose: 10 ml Documented by: PAULY Medical Decision Making Lab Data Result diagrams: 06/08/20 05:05 06/08/20 05:05 Labs: Lab Results 06/06/20 06/06/20 06/07/20 Range/Units 04:52 04:52 04:51 WBC 13.9 H 10.0 (4.5-11.0) X10^3/uL RBC 4.82 4.33 L (4.5-5.9) X10^6/uL Hgb 14.9 13.4 L (13.5-17.5) g/dL Hct 43.0 38.4 L (41-53) % MCV 89.2 88.8 (80-100) fL MCH 30.8 30.9 (26-34) PG MCHC 34.5 34.8 (30-36) % RDW 12.8 12.9 (11.6-14.8) % Plt Count 161 151 (150-400) X10^3/uL Neut % (Auto) 88.8 H 76.1 H (50-75) % Lymph % (Auto) 3.8 L 14.4 L (25-40) % [place] % (Auto) 7.2 8.1 (3-14) % Eos % (Auto) 0.0 L 0.9 L (2-4) % Baso % (Auto) 0.2 0.5 (0-2) % Neut # (Auto) 73425 H 7600 H (4561-2608) /uL Lymph # (Auto) 500 L 1400 (1493-7653) /uL [place] # (Auto) 1000 H 800 (0-900) /uL Eos # (Auto) 0 100 (0-450) /uL Baso # (Auto) 0 0 (0-100) /uL Sodium 138 (137-145) mmol/L Potassium 4.4 (3.4-5.1) mmol/L Chloride 103 (98-107) mmol/L Carbon Dioxide 29 (22-32) mmol/L BUN 18 (9-20) mg/dL Creatinine 0.95 (0.66-1.25) mg/dL Estimated GFR > 60.0 (>60) mL/min BUN/Creatinine Ratio 18.9 (6-22) Glucose 155 H (70-100) mg/dL Calcium 8.7 (8.4-10.2) mg/dL Phosphorus 4.9 H (2.5-4.5) mg/dL Magnesium 2.0 (1.6-2.3) mg/dL 06/07/20 06/08/20 06/08/20 Range/Units 04:51 05:05 05:05 WBC 7.6 (4.5-11.0) X10^3/uL RBC 4.24 L (4.5-5.9) X10^6/uL Hgb 13.2 L (13.5-17.5) g/dL Hct 37.7 L (41-53) % MCV 88.9 (80-100) fL MCH 31.1 (26-34) PG MCHC 35.0 (30-36) % RDW 12.7 (11.6-14.8) % Plt Count 166 (150-400) X10^3/uL Neut % (Auto) 70.6 (50-75) % Lymph % (Auto) 16.2 L (25-40) % [place] % (Auto) 10.0 (3-14) % Eos % (Auto) 2.7 (2-4) % Baso % (Auto) 0.5 (0-2) % Neut # (Auto) 5300 (2898-2673) /uL Lymph # (Auto) 1200 (6206-3387) /uL [place] # (Auto) 800 (0-900) /uL Eos # (Auto) 200 (0-450) /uL Baso # (Auto) 0 (0-100) /uL Sodium 133 L 138 (137-145) mmol/L Potassium 3.8 4.1 (3.4-5.1) mmol/L Chloride 98 102 (98-107) mmol/L Carbon Dioxide 32 33 H (22-32) mmol/L BUN 19 17 (9-20) mg/dL Creatinine 0.99 1.07 (0.66-1.25) mg/dL Estimated GFR > 60.0 > 60.0 (>60) mL/min BUN/Creatinine Ratio 19.2 15.9 (6-22) Glucose 105 H 103 H (70-100) mg/dL Calcium 8.3 L 8.5 (8.4-10.2) mg/dL Phosphorus 3.0 D 3.0 (2.5-4.5) mg/dL Magnesium 2.2 2.4 H (1.6-2.3) mg/dL Discharge Plan Discharge Plan Patient Disposition: Home Discharge orders & Medications Prescriptions: New docusate sodium [Colace] 100 mg capsule 100 mg PO BID Qty: 40 RF: 0 acetaminophen [Tylenol] 325 mg capsule 650 mg PO QID PRN (Reason: pain) Qty: 60 RF: 0 levofloxacin [Levaquin] 750 mg tablet 750 mg PO Q24H Qty: 7 RF: 0 metronidazole [Flagyl] 500 mg tablet 500 mg PO TID Qty: 21 RF: 0 oxycodone 5 mg tablet 10 mg PO Q6H PRN (Reason: pain) Qty: 80 RF: 0 Follow up/Referrals: Tavon Armstrong MD [Physician] - 2 Weeks (This follow up with the the surgical clinic for staple removal in 2 weeks time or your primary care physician ) Diet/Activity/Treatments Diet: Regular Activity: No lifting >20 lbs x 6 weeks. Walking only for exercise for 6 weeks[address] while taking narcotics. Skin/Wound/Dressing Care Report to your healthcare provider any signs of infection, such as:: chills, fever, increased pain and unusual drainage Dressing: May leave incision open to air and may shower please do not submerge the incision in water for at least 1 week Visit Report/Discharge Packet Instructions: DI for an Appendectomy, DI for Prescription Opioid Use, Oxycodone, Metronidazole, Levofloxacin, [facility]: Wound Care Visit Report Forms: Patient Portal/API, Stroke Signs & Symptoms Discharges patient from system. Discharge Date/Time: 06/08/20 13:44
== END 2020-06-08 13:44 | disposition home or self-care (01) | DRG 337 ==
PROVIDERS: Admitting Provider Surgery; Referring Provider Surgery; Visit Provider Surgery
PROC: 0DTJ4ZZ Resection of Appendix, Percutaneous Endoscopic Approach (ICD-10-PCS; CPT 44970; principal; 2020-06-05 19:30)
DX: K35.80 Unspecified acute appendicitis (principal); K66.0 Peritoneal adhesions (postprocedural) (postinfection); Z53.31 Laparoscopic surgical procedure converted to open procedure
CPT/HCPCS: 36415; 44950; 80048; 83735; 84100; 85025; 99222; G0379; J1100; J1170; J1650; J1885; J2405; J2543; J2704; J2765; J3010

== ENCOUNTER 2020-09-11 00:41 | Observation (INO) | payer BC, SELFPAY ==
[2020-06-05 19:27] VITALS: BMI 33.9
[2020-09-11] VITALS (17 sets, daily range): BP systolic 129–178; BP diastolic 73–116; PULSE 60–75; RESP 15–20; TEMP 36.5–37; O2SAT 95–100; BMI 32.8
--- NOTE | 2020-09-11 01:03 | ED_ITS ---
HPI - General Adult General Chief complaint: Abdominal Pain Stated complaint: Possible obstructed bowl Time Seen by Provider: 09/11/20 00:42 Source: patient Mode of arrival: Ambulatory Limitations: no limitations History of Present Illness HPI narrative: Patient is a 45-year-old male who has a child had an incident where he had a bowel perforation which required a partial colectomy. Several months ago had a diagnosis of appendicitis which had to be transition from a laparoscopic procedure to an open procedure secondary to adhesions. Over the past couple days he has developed worsening right sided abdominal discomfort. Has had some nausea but no vomiting. No fevers. Has not had a bowel movement the past 24 hours. Has been almost 24 hours since he has passed any flatus. He states that he feels like that he needs to pass gas but cannot do so. Was seen in outside facility within the past 12 hours. Had labs performed which are unremarkable to include a normal lactate own a normal white blood cell count. Also has normal kidney function. Had a CT scan performed which showed large amount of stool in the proximal sigmoid colon at an anastomotic site. The outside facility contacted General surgery here at this facility in the plan was to have the patient come to the local area to be seen by General surgery tomorrow in clinic. While coming to this facility by private vehicle he stated that his symptoms are worsening. They were the same symptoms that he had earlier but worse. Still having nausea but no vomiting. No fevers. Still has not passed any flatus. He does report that he is urinating without problems. Related Data Previous Rx's Medication Instructions Recorded acetaminophen [Tylenol] 650 mg PO QID PRN #60 cap 06/06/20 docusate sodium [Colace] 100 mg PO BID #40 cap 06/06/20 levofloxacin [Levaquin] 750 mg PO Q24H #7 tab 06/07/20 metronidazole [Flagyl] 500 mg PO TID #21 tab 06/07/20 oxycodone 10 mg PO Q6H PRN #80 tab 06/08/20 Allergies Allergy/AdvReac Type Severity Reaction Status Date / Time No Known Drug Allergies Allergy Verified 06/05/20 20:05 Review of Systems Constitutional Constitutional: Denies fever(s) and Denies headache(s) ENT Ears, Nose, Mouth, and Throat: Denies headache(s) Cardiovascular Cardiovascular: Denies chest pain and Denies dyspnea Respiratory Respiratory: Denies dyspnea Gastrointestinal Gastrointestinal: Reports abdominal pain, Reports bloating, Reports constipation, Reports nausea and Denies vomiting Genitourinary Genitourinary: Denies dysuria Genitourinary: Denies dysuria Musculoskeletal Musculoskeletal: Denies arthralgias and Denies myalgias Integumentary/Breasts Skin/Breast: Denies lesions and Denies rash Neurologic Neurologic: Denies behavioral changes and Denies headache(s) Psychiatric Psychiatric: Denies behavioral changes Hematologic/Lymphatic Hematologic/Lymphatic: Denies easy bleeding and Denies easy bruising Allergic/Immunologic Allergic/Immunologic: Denies urticaria Patient History Medical History (Updated 09/11/20 @ 01:13 by Willie Deal DO) Traumatic perforation of large intestine Surgical History H/O exploratory laparotomy Hx of appendectomy Social History household members: spouse Smoking Status: Never smoker alcohol intake: current Smoking Status: Never smoker alcohol intake frequency: 0-2 drinks per day Substance Use Type: does not use Exam Initial Vital Signs Initial Vital Signs: Vital Signs Temperature 97.8 F 09/11/20 00:50 Pulse Rate 75 09/11/20 00:50 Respiratory Rate 15 09/11/20 00:50 Blood Pressure 178/116 H 09/11/20 00:50 Pulse Oximetry 98 09/11/20 00:50 Const General: cooperative Limitations: mental status not altered HENMT Head: normal to inspection and normocephalic Resp Effort & Inspection: normal respiratory effort Auscultation: clear to auscultation bilaterally Cardio Rate: regular rate Rhythm: regular rhythm GI Inspection: non-distended Palpation: soft and tender (Right-sided abdomen with guarding) Skin Lesions: no lesions Rashes: no rashes Other: Well-healed surgical scar midline abdomen Neuro General: patient alert and patient awake Cognition: normal cognition Speech: speech normal Extrem General: capillary refill normal Psych Appearance: grossly normal and well kempt Course Orders Ordered: ED Orders 09/11/20 01:04 CT abdomen pelvis w con Stat Complete Blood Count AUTO DIFF Stat 09/11/20 01:05 Consult to General Surgery Stat Sodium Chloride (Normal Saline 0.9%) 1,000 mls @ 125 mls/hr IV CONT ALEA Last Admin: 09/11/20 01:16 Dose: 125 mls/hr Documented by: Discontinued Medications Morphine Sulfate (Morphine 4 Mg/Ml Inj) 4 mg IV NOW ONE Stop: 09/11/20 01:07 Last Admin: 09/11/20 01:16 Dose: 4 mg Documented by: Vital Signs Vital signs: Vital Signs - 8 hr 09/11/20 00:50 Temperature 97.8 F Pulse Rate 75 Respiratory Rate 15 Blood Pressure 178/116 H Pulse Oximetry 98 Medical Decision Making Lab Data Lab results reviewed: Yes I reviewed the patient's lab results. Result diagrams: 09/11/20 01:10 Labs: Lab Results 09/11/20 Range/Units 01:10 WBC 8.2 (4.5-11.0) X10^3/uL RBC 5.16 (4.5-5.9) X10^6/uL Hgb 15.4 (13.5-17.5) g/dL Hct 45.6 (41-53) % MCV 88.3 (80-100) fL MCH 29.9 (26-34) PG MCHC 33.8 (30-36) % RDW 13.8 (11.6-14.8) % Plt Count 185 (150-400) X10^3/uL Neut % (Auto) 63.9 (50-75) % Lymph % (Auto) 23.4 L (25-40) % [place] % (Auto) 9.7 (3-14) % Eos % (Auto) 2.2 (2-4) % Baso % (Auto) 0.8 (0-2) % Neut # (Auto) 5200 (1975-3128) /uL Lymph # (Auto) 1900 (7487-9370) /uL [place] # (Auto) 800 (0-900) /uL Eos # (Auto) 200 (0-450) /uL Baso # (Auto) 100 (0-100) /uL Imaging Data CT scan - abdomen/pelvis: Radiologist's Impression: Mild inflammatory Silviano into the colon at the hepatic flexure. Epic look appendagitis and mild uncomplicated diverticulitis or differential considerations. Stool filled colon with large fecal stool burden in the sigmoid colon which is distended measuring up to 11.2 cm. There is no colonic obstruction. However this likely represents focal impaction. MDM Narrative Medical decision making narrative: Labs from prior facility include COVID negative White blood cell count 7.7. H&H 46/83. Platelets 199 Normal chemistries to include normal creatinine, normal LFTs, normal lipase Lactate 0.9 Discuss the case with Dr. Armstrong upon arrival who recommended repeat CBC and a repeat CT scan given the worsening of his symptoms. Repeat CBC continues to show no leukocytosis. CT scan with both p.o. and oral contrast show no colonic obstruction however does have inflammation of the colon and a large stool burden. Plan will be is to admit for observation for General surgery to evaluate later this morning. Discussed this with the patient. He expressed understanding and agreement. Discharge Plan Departure Patient Disposition: Admitted as Observation Clinical Impression: Abdominal pain Admit Date/Time: 09/11/20 01:17 Admit Provider: Tavon Armstrong
--- NOTE | 2020-09-11 01:04 | DI.CT.S_ITS ---
PROCEDURE: CT ABDOMEN PELVIS W CON INDICATIONS: Right-sided abdominal pain concern for obstruction TECHNIQUE: After the administration of intravenous contrast, 5 mm thick sections acquired from the diaphragm to the symphysis. 5 mm coronal and sagittal reformats were acquired. For radiation dose reduction, the following was used: automated exposure control, adjustment of mA and/or kV according to patient size. COMPARISON: None. FINDINGS: Image quality: Excellent. ABDOMEN: Lung bases: Right middle lobe and left basilar atelectasis. Heart size is normal. Tiny hiatal hernia. Solid organs: There is moderate hepatic steatosis. Liver is normal in size and enhancement. Gallbladder contains small gallstones . Biliary system is non dilated. Pancreas enhances normally. Spleen is normal in size and enhancement. No adrenal nodules. Kidneys demonstrate normal size and enhancement, without hydronephrosis. Peritoneum and bowel: There is inflammatory fat stranding adjacent to the hepatic flexure of colon, suggesting epiploic appendagitis. There is large fecal load in colon. A 8.7 x 9.9 cm stool filled structure is seen in the pelvis, which appears to be within or adjacent to the sigmoid colon. There is no finding to suggest colonic obstruction. There are sigmoid colonic diverticula. No CT findings to suggest acute sigmoid diverticulitis. No free air. A trace amount of free fluid is seen in the right pericolic gutter. Nodes and vessels: No retroperitoneal or mesenteric adenopathy by size criteria. Aorta and inferior vena cava are normal in size. Miscellaneous: No ventral hernias. PELVIS: Genitourinary: Bladder wall thickness is normal. Miscellaneous: No inguinal hernias or adenopathy. Bones: No suspicious bony lesions. No vertebral body compression fractures. Moderate to severe degenerative disc disease at L5-S1. IMPRESSION: 1. Inflammatory PET stranding in the hepatic flexure of colon, most likely secondary to epiploic appendagitis. A differential diagnosis is acute diverticulitis. Recommend clinical correlation. 2. A large 8.7 x 9.9 cm stool ball in the sigmoid colon versus a giant sigmoid diverticulum. There is sigmoid diverticulosis. No definitive CT findings to suggest sigmoid diverticulitis. 3. Large fecal load in colon. No findings to suggest colonic obstruction. 4. A trace amount of free fluid in the right pericolic gutter. 5. Small gallstones. 6. Hepatic steatosis. 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 Dictated by: Odilon Smith M.D. on 09/11/2020 at 8:19 Approved by: Odilon Smith M.D. on 09/11/2020 at 8:37
[2020-09-11] MEDS: SODIUM CHLORIDE 0.9% 1,000 ML 125 ML IV ×3 (01:16→11:47)
[2020-09-11] MEDS: MORPHINE 4 MG/ML INJ IV ×4 (01:16→21:52)
[2020-09-11 01:23] LABS: Add Manual Diff / Slide Review NO; Basophils Absolute Auto 100 /uL (0-100); Basophils Percent Auto 0.8 % (0-2); Eosinophils Absolute Auto 200 /uL (0-450); Eosinophils Percent Auto 2.2 % (2-4); Hematocrit 45.6 % (41-53); Hemoglobin 15.4 g/dL (13.5-17.5); Lymphocytes Absolute Auto 1900 /uL (1100-4500); Lymphocytes Percent Auto 23.4 % (25-40); Mean Corpuscular HGB Conc 33.8 % (30-36); Mean Corpuscular Hemoglobin 29.9 PG (26-34); Mean Corpuscular Volume 88.3 fL (80-100); Monocytes Absolute Auto 800 /uL (0-900); Monocytes Percent Auto 9.7 % (3-14); Neutrophils Absolute Auto 5200 /uL (1500-7000); Neutrophils Percent Auto 63.9 % (50-75); Platelet Count 185 X10^3/uL (150-400); Red Blood Cell Count 5.16 X10^6/uL (4.5-5.9); Red Cell Distribution Width 13.8 % (11.6-14.8); White Blood Cell Count 8.2 X10^3/uL (4.5-11.0)
--- NOTE | 2020-09-11 04:44 | PC.NURSE ---
Addendum entered by Keesha Mahajan R.N. 09/11/20 06:30: Rash not spreading, flushing still evident, IV patent and asymptomatic. Original Note: Pt admit from ED, no cardiovascular or respiratory distress, presents w/ abd pain R side tender and painful with movement and palpation. No nausea on admit but reported intermittent by pt. LCTA, VSS w/ slight hypertension normal for pt, +CSM all four limbs. Slight 1+ edema in lower legs and feet, cap refill slightly >2 seconds. Flushing present throughout body, blanchable. Rashes on L and R AC present from prior IV site adhesive removal from another facility- small red welts contained to sites of adhesions. Scattered rash present through body as well, presenting as scattered small red bumps w/out pustules or welts.
[2020-09-11 06:52] LABS: Add Manual Diff / Slide Review NO; Basophils Absolute Auto 0 /uL (0-100); Basophils Percent Auto 0.5 % (0-2); Eosinophils Absolute Auto 200 /uL (0-450); Eosinophils Percent Auto 2.6 % (2-4); Hematocrit 42.3 % (41-53); Hemoglobin 14.4 g/dL (13.5-17.5); Lymphocytes Absolute Auto 1800 /uL (1100-4500); Lymphocytes Percent Auto 27.7 % (25-40); Mean Corpuscular HGB Conc 34.1 % (30-36); Mean Corpuscular Hemoglobin 30.2 PG (26-34); Mean Corpuscular Volume 88.4 fL (80-100); Monocytes Absolute Auto 600 /uL (0-900); Monocytes Percent Auto 8.9 % (3-14); Neutrophils Absolute Auto 3900 /uL (1500-7000); Neutrophils Percent Auto 60.3 % (50-75); Platelet Count 168 X10^3/uL (150-400); Red Blood Cell Count 4.78 X10^6/uL (4.5-5.9); Red Cell Distribution Width 13.8 % (11.6-14.8); White Blood Cell Count 6.4 X10^3/uL (4.5-11.0)
[2020-09-11 06:58] LABS: Lactate (Lactic Acid) 0.7 mmol/L (0.7-2.1)
[2020-09-11 06:59] LABS: Alanine Aminotransferase 36 IU/L (<50); Albumin 3.9 g/dL (3.5-5.0); Albumin Globulin Ratio 1.3 (1.0-2.8); Alkaline Phosphatase 41 U/L (38-126); Aspartate Aminotransferase 23 IU/L (17-59); Bilirubin Total 0.8 mg/dL (0.2-1.3); Blood Urea Nitrogen 15 mg/dL (9-20); Calcium 8.9 mg/dL (8.4-10.2); Carbon Dioxide 30 mmol/L (22-32); Chloride 104 mmol/L (98-107); Estimated Glomerular Filt Rate > 60.0 mL/min (>60); Globulin 3.1 g/dL (1.7-4.1); Glucose 104 mg/dL (70-100); HEMOLYSIS < 15 (0-50); Lipase 46 U/L (23-300); Potassium 4.1 mmol/L (3.4-5.1); Sodium 136 mmol/L (137-145)
--- NOTE | 2020-09-11 09:16 | P.HP_ITS ---
History of Present Illness History of Present Illness Date Patient Seen: 09/11/20 Time Patient Seen: 09:16 Chief complaint: Possible obstructed bowel Narrative: This is a 45-year-old man who was admitted to the hospital for a large bowel obstruction secondary to fecal impaction. He had a traumatic perforation of his distal colon 25 years ago which required a colectomy. Over the past 1 week he has been feeling that he could not evacuate his bowels and was having loose stool. Two days ago he stopped being able to stool and has been feeling bloated and now has significant abdominal pain. No nausea or vomiting. High on arrival to the emergency room he is afebrile white blood cell count 6. CT abdomen pelvis demonstrates fecal impaction to the level of his prior colonic anastomosis in the descending colon. He recently underwent appendectomy 3 months ago which required an exploratory laparotomy with lysis of adhesions. Patient History Medical History Traumatic perforation of large intestine Surgical History H/O exploratory laparotomy Hx of appendectomy Family & Social History Social History: household members spouse Prior Living Arrangements House Safety & Behavioral: Feels Safe in Current Yes Environment Been Physically Hurt or No Threatened By a Person Suicidal Ideation Description None Suicide Plan Description No Plan Tobacco & Substance use: Smoking Status Never smoker alcohol intake current alcohol intake frequency 0-2 drinks per day Substance Use Type does not use Meds Home Medications and Allergies Allergies Allergy/AdvReac Type Severity Reaction Status Date / Time No Known Drug Allergies Allergy Verified 06/05/20 20:05 Review of Systems Review of Systems Narrative: A 10 point review of systems is negative except as noted in the HPI Exam Vital Signs (past 8 hours): - 09/11/20 01:25 09/11/20 01:30 09/11/20 02:00 Temperature Pulse Rate 66 66 69 Respiratory Rate Blood Pressure 161/100 H 152/98 H 142/85 H Pulse Oximetry 98 98 96 09/11/20 02:30 09/11/20 02:50 09/11/20 03:00 Temperature Pulse Rate 72 69 66 Respiratory Rate Blood Pressure 142/86 H 144/86 H 129/83 Pulse Oximetry 95 100 95 09/11/20 03:39 09/11/20 08:00 Temperature 98.1 F 98.6 F Pulse Rate 63 64 Respiratory Rate 16 16 Blood Pressure 143/87 H 139/86 Pulse Oximetry 97 Oxygen Delivery Method Room Air Oxygen Flow Rate 0 Narrative Exam Narrative: General-no acute distress, well nourished adult male HEENT-moist mucous membranes, no scleral icterus Neck-supple, no lymphadenopathy Chest- non labored respirations, clear to auscultation bilaterally Cardiac-regular rate no peripheral edema Abdomen-diffuse tenderness with mildly distended no peritonitis. Midline laparotomy scar Extremities-warm, well perfused Neurological-alert and oriented, no focal deficits Objective Labs Result Diagrams: 09/11/20 06:30 09/11/20 06:30 Labs: Laboratory Results - last 24 hr 09/11/20 09/11/20 09/11/20 01:10 06:30 06:30 WBC 8.2 6.4 RBC 5.16 4.78 Hgb 15.4 14.4 Hct 45.6 42.3 MCV 88.3 88.4 MCH 29.9 30.2 MCHC 33.8 34.1 RDW 13.8 13.8 Plt Count 185 168 Neut % (Auto) 63.9 60.3 Lymph % (Auto) 23.4 L 27.7 [place] % (Auto) 9.7 8.9 Eos % (Auto) 2.2 2.6 Baso % (Auto) 0.8 0.5 Neut # (Auto) 5200 3900 Lymph # (Auto) 1900 1800 [place] # (Auto) 800 600 Eos # (Auto) 200 200 Baso # (Auto) 100 0 Sodium 136 L Potassium 4.1 Chloride 104 Carbon Dioxide 30 BUN 15 Creatinine 0.94 Estimated GFR > 60.0 BUN/Creatinine Ratio 16.0 Glucose 104 H Lactate Calcium 8.9 Total Bilirubin 0.8 AST 23 ALT 36 Alkaline Phosphatase 41 Total Protein 7.0 Albumin 3.9 Globulin 3.1 Albumin/Globulin Ratio 1.3 Lipase 46 09/11/20 06:30 WBC RBC Hgb Hct MCV MCH MCHC RDW Plt Count Neut % (Auto) Lymph % (Auto) [place] % (Auto) Eos % (Auto) Baso % (Auto) Neut # (Auto) Lymph # (Auto) [place] # (Auto) Eos # (Auto) Baso # (Auto) Sodium Potassium Chloride Carbon Dioxide BUN Creatinine Estimated GFR BUN/Creatinine Ratio Glucose Lactate 0.7 Calcium Total Bilirubin AST ALT Alkaline Phosphatase Total Protein Albumin Globulin Albumin/Globulin Ratio Lipase Assessment & Plan Assessment and plan (1) Large bowel obstruction: Status: Acute Assessment & Plan narrative: 45-year-old in man with remote distal colectomy for benign disease admitted for large bowel obstruction secondary to fecal obstruction at his colonic anastomosis. No evidence of bowel perforation. No immediate surgical intervention indicated. Will start with bowel prep from a román and below. If this fails to improve the situation will proceed with colonoscopy for decompression of the obstruction. If this fails would require exploratory surgery with bowel resection and possible ostomy which given his recent open appendectomy with extensive lysis of adhesions and inability to bowel prep him prior to surgery could be quite difficult. -Clears -PEG + PO mineral oil -Dulcolax MS and mineral oil MS -SCDs -Admission
[2020-09-11] MEDS: MINERAL OIL 473 ML OIL 30 ML PO ×2 (09:22→16:27)
[2020-09-11] MEDS: PEG3350/SOD SULF,BICARB,CL/KCL 4,000 ML SOLUTION 4000 ML PO (09:22)
[2020-09-11] MEDS: BISACODYL 10 MG SUPP PR (10:04)
[2020-09-11] MEDS: ONDANSETRON 4 MG/2 ML INJ IV (11:14)
--- NOTE | 2020-09-11 11:50 | CM.DANOTE ---
Attempted to meet with patient but was in the restroom at the time. Spoke to patient's nurse Christi who informed me that patient was scheduled for surgery at 1 pm today to clean out stool impaction. The impacted stool and inflammation is believed to be causing the obstruction. Pt. is independent at baseline and no discharge needs identified at this time. Advise CM to check in again post surgery to assure condition doesn't worsen. At present, pt. is expected to discharge home to [facility] (?) [place], but lives off the grid so I told him to let us know if he identifies any need.
[2020-09-11] MEDS: fentaNYL 250 MCG/5 ML INJ IV (13:34)
[2020-09-11] MEDS: MIDAZOLAM 5 MG/5 ML VIAL IV (13:34)
--- NOTE | 2020-09-11 14:16 | PM.OP.ENDO ---
Operative Date/Time/Diagnoses Date of procedure: 09/11/20 Time of procedure: 14:16 Pre-op diagnosis: Large bowel obstruction Post-op diagnosis: same Procedure & Clinicians Study performed: Colonoscopy Same procedure as scheduled: Yes Indications: [age] y.o man admitted for a partial large bowel obstruction secondary to fecal impaction. Surgeon: Tavon Armstrong Procedure Notes Procedure in detail: The history and physical was performed/updated and the patient is ASA class is *. The procedure was discussed in detail with the patient. Potential risks complications including infection, bleeding, missed diagnosis, perforation, need for surgery, and were explained. Their questions were answered and informed consent was obtained. Patient was brought to the procedure room and placed standard monitoring equipment. The patient's vital signs were monitored continuously throughout the entire procedure. Prior to starting time-out was performed. The patient was placed in the left lateral recumbent position. Procedural sedation was administered. Examination began with a thorough inspection of the perianal area there was no evidence of fissures, fistulae, external hemorrhoids or cutaneous malignancy. The colonoscopy scope was then placed into the anal canal and was advanced. There was a large large amount of stool in the sigmoid colon. The area was copiously lavaged with 6 L saline. I was able to pass this area and advance into the transverse colon. Using a balloon I was able to pull back with the scope to evacuate more stool. A soap suds enema was performed. I could visualize the colonic anastamosis although the detail was difficult do to the poor prep. There was no rick stricture and the scope passed easily to the the colon. The patient tolerated the procedure well. They will be discharged once criteria are met. The withdrawl time was not applicable minutes. The sedation time was 50 minutes. Impression: fecal impaction Post-procedure Recommendations: High fiber diet Disposition: Acute Care
[2020-09-12 00:04] VITALS: BP 140/86; PULSE 66; RESP 20; TEMP 37.2; O2SAT 95
[2020-09-12 03:00] VITALS: O2SAT 95
[2020-09-12 04:00] VITALS: BP 122/81; PULSE 65; RESP 18; TEMP 36.7; O2SAT 98
[2020-09-12 07:41] VITALS: O2SAT 98
[2020-09-12 08:32] VITALS: BP 132/96; PULSE 70; RESP 16; TEMP 37; O2SAT 98
--- NOTE | 2020-09-12 08:56 | PC.NURSE ---
Patient educated about diet, exercise, new medications, ss of stroke, ss of infection, and fall prevention. Patient left facility, walking to car w/ [employer]'s by his side. Patient left facility with all belongings.
--- NOTE | 2020-09-12 09:04 | CM.DPC ---
DCP: continued: case received and d/c order noted. EMR review shows that pt did d/c early this morning, [id number] in company of . No d/c needs were identified by the care team members.
== END 2020-09-12 08:59 | disposition home or self-care (01) ==
LOC: ED 01:07 → AC 01:17
PROVIDERS: Admitting Provider Surgery; Emergency Provider Emergency Medicine; Visit Provider Surgery
PROC: 0DJD8ZZ Inspection of Lower Intestinal Tract, Via Natural or Artificial Opening Endoscopic (ICD-10-PCS; CPT 45378; principal; 2020-09-11 13:00)
DX: K56.600 Partial intestinal obstruction, unspecified as to cause (principal); K56.41 Fecal impaction; R10.9 Unspecified abdominal pain; Z98.890 Other specified postprocedural states
CPT/HCPCS: 45393; 36415; 74177; 80053; 83605; 83690; 85025; 96361; 96374; 96375; 99152; 99153; 99284; G0378; J2250; J2270; J2405; J3010